=== PATIENT | female | born 1960 | race Caucasian/White ===

== ENCOUNTER 2016-04-28 11:46 | Emergency (ER) | payer OTHER ==
[~2016-04-28 11:46] MED LIST: ALBUTEROL0.09 MG/A2 IH; AMBIEN5 MG PO; AMOXICILLIN500 MG PO; ANAFRANIL50 M1 PO; ANAFRANIL50 MG PO; ASPIRIN81 M1 PO; ATIVAN0.5 MG PO; AUGMENTIN 875 M1 TAB PO; BUSPIRONE HCL15 MG PO; BUSPIRONE HCL5 MG PO; CALCIUM 500 +1 EAC1 PO; CIPRO250 MG PO; CIPROFLOXACIN500 MG PO; CLARITIN10 MG PO; CLOMIPRAMINE HC50 MG PO; CLONAZEPAM0.5 M2 PO; COMBIVENT1 ARO IH; DARVOCET N 1001 TAB PO; DAYPRO600 M1 PO; DIAZEPAM10 MG PO; DICLOFENAC POTA50 MG PO; DITROPAN XL10 MG PO; DYAZIDE 25 MG-31 CAP PO; Duoneb 3ML 3 MG/3 ML INH; FLEXERIL10 MG PO; FLUOXETINE HCL20 MG PO; FLUOXETINE HCL40 MG PO; FLUOXETINE HYDR20 M1 PO; FLUOXETINE40 MG PO; GABAPENTIN600 MG PO; HYDROCODONE BIT1 T11 PO; HYDROXYZINE HCL50 MG PO; KLONOPIN1 M1 PO; KLONOPIN1 MG PO; KLONOPIN2 M1 PO; LISINOPRIL AND1 TA2 PO; LISINOPRIL/HCTZ1 TA2 PO; LISINOPRIL10 MG PO; MEDROL DOSEPAK4 MG PO; MELATONIN5 M2 PO; MOTRIN IB200 MG PO; MOTRIN800 MG PO; NORCO 325 MG-51 TAB PO; NORFLEX100 MG PO; NORVASC5 MG PO; OSCAL/D,OYSTER250 MG PO; PEPCID20 MG PO; PIROXICAN10 MG PO; PRAVACHOL20 MG PO; PRAVACHOL40 MG PO; PREDNICOT20 MG PO; PREDNISONE20 M1 PO; PROAIR HFA8.5 GM IH; PROTONIX40 MG PO; QVAR 80MCG/INH7.3 G1 IH; REQUIP2 M2 PO; ROBAXIN750 MG PO; ROPINIROLE HYDRO1 MG PO; SEROQUEL XR300 MG PO; SEROQUEL XR400 MG PO; SEROQUEL300 MG PO; SEROQUEL50 MG PO; TIZANIDINE HCL4 M1 PO; TOPROL XL100 MG PO; TOPROL XL50 M1 PO; TOPROL XL50 MG PO; TORADOL10 MG PO; TRAMADOL HCL50 MG PO; TRAZODONE100 MG PO; ULTRAM50 MG PO; VALIUM10 MG PO; VALIUM5 MG PO; VENTOLIN H0.09 MG/AC INH; VIBRAMYCIN100 MG PO; VICODIN 5/500 505 MG PO; VICODIN1 TAB PO; VITAMIN D50000 IU PO; VITAMIN D50000 UNIT PO; VOLTAREN1% TP; ZITHROMAX Z PA250 MG PO; ZITHROMAX250 MG PO; Zestril,Prinivil5 MG PO; Zofran4 MG PO; vit d2 PO
[2016-04-28] MEDS ORDERED: CYCLOBENZAPRINE10 MG PO (13:35)
== END 2016-04-28 13:43 | disposition home or self-care (01) ==
LOC: ED 11:46
DX: T14.8 Other injury of unspecified body region (principal); M54.2 Cervicalgia; M54.5 Low back pain; I10 Essential (primary) hypertension; F17.200 Nicotine dependence, unspecified, uncomplicated; Z96.653 Presence of artificial knee joint, bilateral; Z98.890 Other specified postprocedural states; Z79.82 Long term (current) use of aspirin; Z79.899 Other long term (current) drug therapy; Z91.041 Radiographic dye allergy status; Z91.010 Allergy to peanuts; Z91.013 Allergy to seafood; W19.XXXA Unspecified fall, initial encounter; Y93.89 Activity, other specified; Y92.89 Other specified places as the place of occurrence of the external cause; Y99.9 Unspecified external cause status

== ENCOUNTER → 2016-09-04 | Outpatient (CLI) | payer OTHER ==
[~2016-09-04] MED LIST changes: +CYCLOBENZAPRINE10 MG PO
[2016-09-04 12:34] LABS: BILIRUBIN NEGATIVE (NEGATIVE); BLOOD TRACE-INTACT (NEGATIVE); CLARITY CLEAR (CLEAR); COLOR YELLOW (YELLOW); GLUCOSE NEGATIVE (NEGATIVE); KETONE NEGATIVE (NEGATIVE); LEUKO ESTERASE NEGATIVE (NEGATIVE); NITRITE NEGATIVE (NEGATIVE); PH 6.5 (5.0-9.0); PROTEIN NEGATIVE (NEGATIVE); SPECIFIC GRAVITY <= 1.005 (1.005-1.030); UROBILINOGEN 0.2 E.U./dl (0.2-1.0)
[2016-09-04 12:44] LABS: RBC 0-2 rbc/hpf (0-2)
== END | disposition home or self-care (01) ==
LOC: LAB 11:51
PROVIDERS: Urology
DX: R31.9 Hematuria, unspecified (principal)

== ENCOUNTER → 2016-09-12 | Outpatient (CLI) | payer OTHER | END | disposition home or self-care (01) | LOC: CT 10:52 | DX: R31.9 Hematuria, unspecified (principal) ==

== ENCOUNTER 2016-11-05 09:08 | Emergency (ER) | payer OTHER ==
[~2016-11-05] VITALS: Ht 152.4 cm; Wt 81.6 kg
[2016-11-05 09:17] VITALS: BP 153/97
[2016-11-05] MEDS ORDERED: MEDROL DOSEPAK4 MG PO (11:21)
== END 2016-11-05 11:36 | disposition home or self-care (01) ==
LOC: ED 09:08
DX: M77.9 Enthesopathy, unspecified (principal); M25.531 Pain in right wrist; J44.9 Chronic obstructive pulmonary disease, unspecified; I10 Essential (primary) hypertension; E78.5 Hyperlipidemia, unspecified; G43.909 Migraine, unspecified, not intractable, without status migrainosus; E66.01 Morbid (severe) obesity due to excess calories; G25.81 Restless legs syndrome; F17.200 Nicotine dependence, unspecified, uncomplicated; Z96.653 Presence of artificial knee joint, bilateral; Z98.890 Other specified postprocedural states; Z79.899 Other long term (current) drug therapy; Z79.82 Long term (current) use of aspirin; Z91.010 Allergy to peanuts; Z91.013 Allergy to seafood; Z88.6 Allergy status to analgesic agent; X50.0XXA Overexertion from strenuous movement or load, initial encounter; Y93.89 Activity, other specified; Y92.89 Other specified places as the place of occurrence of the external cause; Y99.9 Unspecified external cause status

== ENCOUNTER → 2017-03-20 | Outpatient (CLI) | payer MEDICARE ==
[2017-03-20 10:09] LABS: CREATININE 0.94 mg/dL (0.55-1.02)
== END | disposition home or self-care (01) ==
LOC: LAB 09:26 → CT 10:00
PROVIDERS: Radiology Diagnostic Radiology
DX: R31.9 Hematuria, unspecified (principal)

== ENCOUNTER → 2017-10-30 | Outpatient (CLI) | payer MEDICARE | END | disposition home or self-care (01) | LOC: US 12:15 | DX: N83.201 Unspecified ovarian cyst, right side (principal); Z78.0 Asymptomatic menopausal state ==

== ENCOUNTER → 2017-11-27 | Day surgery (SDC) | payer MEDICARE ==
[~2017-11-27] VITALS: Ht 157.4 cm; Wt 73.0 kg
--- NOTE | ~2017-11-27 | PROC NOTE ---
[place], [place] PROCEDURE NOTE NAME: YADIEL BARBOZA UNIT #: [id number] ROOM: DOCTOR: OJ MARTINEZ MD BIRTHDATE: [birth year] DOS: 11/27/2017 PREOPERATIVE DIAGNOSIS: Screening examination. POSTOPERATIVE DIAGNOSIS: Normal colon. PROCEDURE: Colonoscopy. ENDOSCOPIST: Oj Martinez MD CERTIFIED PHLEBOTOMIST: STEPHEN. ANESTHESIA: MAC. INDICATIONS: This is a 57-year-old lady who comes in for a screening examination. The procedure and its complications were explained to the patient in detail preoperatively. Complications that were discussed included, but were not limited to bleeding, missed lesions and colon perforation. She agreed to proceed. DESCRIPTION OF PROCEDURE: After identifying the patient, the patient was brought to the operating suite and laid in the left lateral position. After IV sedation was administered, a time-out procedure was called. A digital rectal exam was performed, which was within normal limits. An adult colonoscope was now introduced into the anal canal and advanced sequentially into the rectum, sigmoid colon, descending colon, transverse colon and ascending colon up to the cecum. The colon was found to be tortuous and was negotiated without any difficulty, right up to the cecum. Upon reaching the cecum, the scope was withdrawn. Total withdrawal time was approximately 7 minutes. There were no obvious lesions that could be seen in the entirety of the colon except for the tortuosity of the colon. After the scope was withdrawn, the patient was then brought back to the recovery room in stable fashion. There were no complications. Dr. Oj Martinez, the attending endoscopist, was present throughout the operating case. Based on these findings, the patient is recommended to have another colonoscopy in 10 years or sooner if new symptoms. These findings were discussed with the patient's next of kin in the recovery room. [place], [place] PROCEDURE NOTE NAME: YADIEL BARBOZA UNIT #: [id number] ROOM: DOCTOR: OJ MARTINEZ MD BIRTHDATE: [birth year] Oj Martinez MD CM:PROCNOTE:PROCEDURE NOTE [id number] OJ MARTINEZ MD
[2017-11-27 06:30] VITALS: BP 142/86
[2017-11-27 08:00] VITALS: BP 105/56
[2017-11-27 08:15] VITALS: BP 110/64
[2017-11-27 08:30] VITALS: BP 116/68
== END | disposition home or self-care (01) ==
LOC: SDC 11-24 12:30
DX: Z12.11 Encounter for screening for malignant neoplasm of colon (principal); K63.89 Other specified diseases of intestine; I10 Essential (primary) hypertension; J44.9 Chronic obstructive pulmonary disease, unspecified; M19.90 Unspecified osteoarthritis, unspecified site; G43.909 Migraine, unspecified, not intractable, without status migrainosus; F32.9 Major depressive disorder, single episode, unspecified; F41.9 Anxiety disorder, unspecified; F17.210 Nicotine dependence, cigarettes, uncomplicated; Z85.828 Personal history of other malignant neoplasm of skin; Z88.8 Allergy status to other drugs, medicaments and biological substances; Z79.899 Other long term (current) drug therapy; Z79.82 Long term (current) use of aspirin; Z82.49 Family history of ischemic heart disease and other diseases of the circulatory system; Z96.653 Presence of artificial knee joint, bilateral
CPT/HCPCS: 00812; G0121

== ENCOUNTER 2018-09-11 12:33 | Emergency (ER) | payer MEDICARE ==
[~2018-09-11] VITALS: Ht 157.4 cm; Wt 82.1 kg
[2018-09-11 13:36] LABS: BASO % 0.4 % (0.0-1.0); EOS # 0.1 10*3/uL (0.0-0.4); EOS % 1.5 % (1.0-4.0); HEMATOCRIT 40.6 % (37.0-47.0); HEMOGLOBIN 13.7 g/dl (12.0-16.0); LYMPH # 2.2 10*3/uL (1.3-4.4); LYMPH % 30.6 % (27.0-41.0); MEAN CELL VOLUME 100.5 fl (81.0-99.0); MEAN CORPUSCULAR HGB 33.9 pg (27.0-31.0); MEAN CORPUSCULAR HGB CONC 33.7 g/dl (33.0-37.0); MEAN PLATELET VOLUME 10.9 fl (9.6-12.3); MONO # 0.4 10*3/uL (0.1-1.0); NEUT # 4.4 10*3/uL (2.3-7.9); NEUT % 61.2 % (47.0-73.0); PLATELET COUNT AUTOMATED 142 10*3/uL (130-400); RED BLOOD COUNT 4.04 10*6/uL (4.10-5.10); WHITE BLOOD COUNT 7.2 10*3/uL (4.8-10.8)
[2018-09-11 13:47] LABS: ACT PARTIAL THROMBO TIME 26.8 SECONDS (20.0-32.1)
[2018-09-11 13:54] LABS: ALBUMIN 3.8 gm/dl (3.1-4.5); ALKALINE PHOSPHATASE 98 U/L (45-117); BUN 20 mg/dl (7-24); CHLORIDE 107 mmol/L (98-107); LIPASE 125 U/L (73-393); POTASSIUM 4.3 mmol/L (3.5-5.1); SGOT/AST 17 IU/L (3-35); SGPT/ALT 22 U/L (12-78); SODIUM 141 mmol/L (136-145); TOTAL PROTEIN 7.6 gm/dL (6.4-8.2)
[2018-09-11 15:19] LABS: BILIRUBIN NEGATIVE (NEGATIVE); BLOOD NEGATIVE (NEGATIVE); CLARITY CLEAR (CLEAR); COLOR YELLOW (YELLOW); GLUCOSE NEGATIVE (NEGATIVE); KETONE NEGATIVE (NEGATIVE); LEUKO ESTERASE NEGATIVE (NEGATIVE); NITRITE NEGATIVE (NEGATIVE); PH 6.5 (5.0-9.0); SPECIFIC GRAVITY <= 1.005 (1.005-1.030); UROBILINOGEN 0.2 E.U./dl (0.2-1.0)
[2018-09-11 15:28] LABS: URINE AMPHETAMINES < 1000 (1000ng/ml); URINE BARBITURATES < 200 (200ng/ml); URINE BENZODIAZEPINES > 200 (200ng/ml); URINE CANNABINOIDS (THC) < 50 (50ng/ml); URINE COCAINE < 300 (300ng/ml); URINE METHADONE < 300 (300ng/ml); URINE OPIATES < 300 (300ng/ml)
[2018-09-11 15:29] LABS: URINE PHENCYCLIDINE < 25 (25ng/ml)
[2018-09-11 15:34] LABS: BACTERIA 1+
[2018-09-11 16:35] VITALS: BP 125/80
== END 2018-09-11 19:59 | disposition home or self-care (01) ==
LOC: ED 12:33
PROVIDERS: Physician Assistant
DX: S30.1XXA Contusion of abdominal wall, initial encounter (principal); R07.81 Pleurodynia; R11.0 Nausea; F17.200 Nicotine dependence, unspecified, uncomplicated; Z88.6 Allergy status to analgesic agent; Z91.013 Allergy to seafood; Z91.010 Allergy to peanuts; Z91.041 Radiographic dye allergy status; Z79.899 Other long term (current) drug therapy; Z79.82 Long term (current) use of aspirin; X50.0XXA Overexertion from strenuous movement or load, initial encounter; W22.8XXA Striking against or struck by other objects, initial encounter; Y93.89 Activity, other specified; Y92.098 Other place in other non-institutional residence as the place of occurrence of the external cause; Y99.8 Other external cause status

== ENCOUNTER → 2018-10-27 | Outpatient (CLI) | payer MEDICARE | END | disposition home or self-care (01) | LOC: CARD 01:21 | DX: I10 Essential (primary) hypertension (principal); I77.810 Thoracic aortic ectasia; Z79.899 Other long term (current) drug therapy ==

== ENCOUNTER → 2018-12-04 | Day surgery (SDC) | payer MEDICARE ==
[~2018-12-04] VITALS: Ht 157.4 cm; Wt 80.7 kg
[~2018-12-04] MED LIST changes: +KEPPRA250 MG PO; +QUETIAPINE FUM200 M3 PO
--- NOTE | ~2018-12-04 | O ---
[place], [place] OPERATIVE NOTE NAME: YADIEL BARBOZA UNIT #: [id number] ROOM: DOCTOR: THADDEUS WOODY MD BIRTHDATE: [birth year] DOS: 12/04/2018 PROCEDURE: Esophagogastroduodenoscopy and biopsy. INDICATIONS: Dysphagia. INFORMED CONSENT: An informed consent was obtained from the patient after indication of procedure, the alternatives, and potential complications were explained to her. PROCEDURE MEDICATION: Sedation was administered by Anesthesiology Department. SCOPE USED: Olympus diagnostic adult upper endoscope GIF-180, depth of insertion was to the descending duodenum. FINDINGS: After adequate sedation, the patient was placed in a left lateral decubitus position, scope was introduced under direct visualization through the upper esophageal sphincter into the esophagus. Esophageal mucosa appeared normal with no strictures or erosive esophagitis. Random biopsies were obtained to rule out eosinophilic esophagitis. GE junction was identified at 40 cm from incisors. The stomach was then intubated. Gastric mucosa inspected. Severe gastritis was seen with no discrete ulcers or active bleeding. A CLOtest was performed from the gastric antrum and body. Retroflexed views in the fundus showed no hiatal hernia. The pylorus was intubated easily. The duodenal bulb and descending duodenum were within normal range. Scope was then withdrawn after the stomach was decompressed. The patient tolerated the procedure well. IMPRESSION: 1. Severe gastritis, CLOtest performed. 2. Normal upper GI tract, otherwise, random esophageal biopsies were obtained. PLAN: We will review the histopathology and CLOtest results and treat the patient accordingly. Office followup will be scheduled in 2-3 weeks. [place], [place] OPERATIVE NOTE NAME: YADIEL BARBOZA UNIT #: [id number] ROOM: DOCTOR: THADDEUS WOODY MD BIRTHDATE: [birth year] THADDEUS WOODY MD CM:OPRECORD:OPERATIVE NOTE [id number] THADDEUS WOODY MD 12/07/18 1420 interface
--- NOTE | ~2018-12-04 | CON ---
[place], [place] REPORT OF CONSULTATION NAME: YADIEL BARBOZA UNIT #: [id number] ROOM: DOCTOR: THADDEUS WOODY MD BIRTHDATE: [birth year] DOS: 12/04/2018 PROCEDURE: Esophagogastroduodenoscopy and biopsy. INDICATIONS: Dysphagia. INFORMED CONSENT: An informed consent was obtained from the patient after indication of procedure, the alternatives, and potential complications were explained to her. PROCEDURE MEDICATION: Sedation was administered by Anesthesiology Department. SCOPE USED: Olympus diagnostic adult upper endoscope GIF-180, depth of insertion was to the descending duodenum. FINDINGS: After adequate sedation, the patient was placed in a left lateral decubitus position, scope was introduced under direct visualization through the upper esophageal sphincter into the esophagus. Esophageal mucosa appeared normal with no strictures or erosive esophagitis. Random biopsies were obtained to rule out eosinophilic esophagitis. GE junction was identified at 40 cm from incisors. The stomach was then intubated. Gastric mucosa inspected. Severe gastritis was seen with no discrete ulcers or active bleeding. A CLOtest was performed from the gastric antrum and body. Retroflexed views in the fundus showed no hiatal hernia. The pylorus was intubated easily. The duodenal bulb and descending duodenum were within normal range. Scope was then withdrawn after the stomach was decompressed. The patient tolerated the procedure well. IMPRESSION: 1. Severe gastritis, CLOtest performed. 2. Normal upper GI tract, otherwise, random esophageal biopsies were obtained. PLAN: We will review the histopathology and CLOtest results and treat the patient accordingly. Office followup will be scheduled in 2-3 weeks. TAHDDEUS WOODY MD CM:CONSTR:REPORT OF CONSULTATION 0849 12/07/18 1430 OSMANI [email or web address]
[2018-12-04 08:06] VITALS: BP 145/88
[2018-12-04 08:49] VITALS: BP 116/75
[2018-12-04 09:04] VITALS: BP 123/87
[2018-12-04 09:20] VITALS: BP 142/82
== END | disposition home or self-care (01) ==
LOC: SDC 12-01 08:45
DX: R13.19 Other dysphagia (principal); K29.70 Gastritis, unspecified, without bleeding; K21.0 Gastro-esophageal reflux disease with esophagitis; I10 Essential (primary) hypertension; J44.9 Chronic obstructive pulmonary disease, unspecified; K21.9 Gastro-esophageal reflux disease without esophagitis; M19.90 Unspecified osteoarthritis, unspecified site; F32.9 Major depressive disorder, single episode, unspecified; F41.9 Anxiety disorder, unspecified; F17.210 Nicotine dependence, cigarettes, uncomplicated; Z91.041 Radiographic dye allergy status; Z98.890 Other specified postprocedural states; Z79.899 Other long term (current) drug therapy; Z88.8 Allergy status to other drugs, medicaments and biological substances; Z96.653 Presence of artificial knee joint, bilateral

== ENCOUNTER 2019-04-19 10:57 | Emergency (ER) | payer MEDICARE ==
[2019-04-19 12:12] LABS: BASO % 0.6 % (0.0-1.0); EOS # 0.2 10*3/uL (0.0-0.4); EOS % 3.8 % (1.0-4.0); HEMATOCRIT 43.6 % (37.0-47.0); LYMPH % 38.5 % (27.0-41.0); MEAN CELL VOLUME 101.4 fl (81.0-99.0); MEAN CORPUSCULAR HGB 34.9 pg (27.0-31.0); MEAN CORPUSCULAR HGB CONC 34.4 g/dl (33.0-37.0); MEAN PLATELET VOLUME 10.6 fl (9.6-12.3); MONO # 0.2 10*3/uL (0.1-1.0); NEUT # 2.8 10*3/uL (2.3-7.9); NEUT % 52.9 % (47.0-73.0); PLATELET COUNT AUTOMATED 158 10*3/uL (130-400); RED CELL DISTRI WIDTH 12.6 % (0-14.5); WHITE BLOOD COUNT 5.2 10*3/uL (4.8-10.8)
[2019-04-19 12:29] LABS: ALBUMIN 3.9 gm/dl (3.1-4.5); ALKALINE PHOSPHATASE 75 U/L (45-117); BUN 11 mg/dl (7-24); CHLORIDE 108 mmol/L (98-107); POTASSIUM 3.7 mmol/L (3.5-5.1); SGOT/AST 51 IU/L (3-35); SGPT/ALT 63 U/L (12-78); SODIUM 137 mmol/L (136-145); TOTAL PROTEIN 7.8 gm/dL (6.4-8.2)
[2019-04-19 12:39] LABS: BILIRUBIN NEGATIVE (NEGATIVE); BLOOD TRACE-LYSED (NEGATIVE); CLARITY CLEAR (CLEAR); COLOR YELLOW (YELLOW); GLUCOSE NEGATIVE (NEGATIVE); KETONE NEGATIVE (NEGATIVE); LEUKO ESTERASE NEGATIVE (NEGATIVE); NITRITE NEGATIVE (NEGATIVE); PH 6.5 (5.0-9.0); SPECIFIC GRAVITY 1.025 (1.005-1.030); UROBILINOGEN 0.2 E.U./dl (0.2-1.0)
[2019-04-19] MEDS ORDERED: PREDNISONE50 MG PO (14:34)
[2019-04-19] MEDS ORDERED: ZITHROMAX250 MG PO (14:34)
== END 2019-04-19 14:49 | disposition home or self-care (01) ==
LOC: ED 10:57
PROVIDERS: Nurse Practitioner Family
DX: J20.9 Acute bronchitis, unspecified (principal); H57.89 Other specified disorders of eye and adnexa; J45.909 Unspecified asthma, uncomplicated; M19.90 Unspecified osteoarthritis, unspecified site; I10 Essential (primary) hypertension; G40.909 Epilepsy, unspecified, not intractable, without status epilepticus; K21.9 Gastro-esophageal reflux disease without esophagitis; F17.200 Nicotine dependence, unspecified, uncomplicated; Z88.8 Allergy status to other drugs, medicaments and biological substances; Z91.010 Allergy to peanuts; Z91.013 Allergy to seafood; Z91.041 Radiographic dye allergy status; Z79.899 Other long term (current) drug therapy

== ENCOUNTER → 2019-11-25 | Outpatient (CLI) | payer MEDICARE ==
[~2019-11-25] MED LIST changes: +FLOVENT HFA12 G1 PO; +GOOD NEIGHBOR P20 MG PO; +MELATONIN10 M2 PO; +NORVASC2.5 MG PO; -PRAVACHOL20 MG PO; +PREDNISONE50 MG PO
[2019-11-25 11:42] LABS: HEMATOCRIT 42.2 % (37.0-47.0); MEAN CELL VOLUME 103.9 fl (81.0-99.0); MEAN CORPUSCULAR HGB 34.7 pg (27.0-31.0); MEAN CORPUSCULAR HGB CONC 33.4 g/dl (33.0-37.0); MEAN PLATELET VOLUME 10.8 fl (9.6-12.3); RED BLOOD COUNT 4.06 10*6/uL (4.10-5.10); RED CELL DISTRI WIDTH 12.8 % (0-14.5); WHITE BLOOD COUNT 4.9 10*3/uL (4.8-10.8)
[2019-11-25 12:00] LABS: ALBUMIN 3.7 gm/dl (3.1-4.5); ALKALINE PHOSPHATASE 95 U/L (45-117); BUN 15 mg/dl (7-24); CHLORIDE 111 mmol/L (98-107); CHOLESTEROL 218 mg/dL (<200); CREATININE 0.81 mg/dL (0.55-1.02); HDL CHOLESTEROL 83 mg/dl (40-60); LDL CHOLESTEROL 104 mg/dL (9-159); POTASSIUM 4.8 mmol/L (3.5-5.1); SGOT/AST 28 IU/L (3-35); SGPT/ALT 38 U/L (12-78); SODIUM 142 mmol/L (136-145); TOTAL PROTEIN 7.6 gm/dL (6.4-8.2); TRIGLYCERIDES 157 mg/dl (<150); VLDL CHOLESTEROL 31 mg/dL (6-40)
--- NOTE | 2019-11-25 12:12 | NUR ---
INFORMED SIGNED CONSENT OBTAINED FOR LEXISCAN STRESS TEST WITH DR BUCHANAN. RESTING EKG NSR HR 76 BP 140/84. PULSE OX 97% LUNGS CLEAR. PT COMPLETED ONE MINUTE OF A LEXISCAN PROTOCOL WITH PT RECEIVING LEXISCAN 0.4MG IV OVER 10 SECONDS. NO ARRHYTMIAS OR ST CHANGES NOTED. PT C/O NAUSEA WITH INJECTION, IV ZOFRAN GIVEN. LAST RECOVERY HR OF 85 BP 126/74. PT IN STABLE CONDITION, AWAITING NUCLEAR IMAGES.
== END | disposition home or self-care (01) ==
LOC: CARD 00:38
PROVIDERS: ATTEND Physician Assistant
DX: I25.9 Chronic ischemic heart disease, unspecified (principal); R53.81 Other malaise; J44.9 Chronic obstructive pulmonary disease, unspecified; R07.9 Chest pain, unspecified; R06.02 Shortness of breath

== ENCOUNTER → 2019-12-02 | Outpatient (CLI) | payer MEDICARE | END | disposition home or self-care (01) | LOC: US 13:00 | PROVIDERS: ATTEND Physician Assistant | DX: J43.9 Emphysema, unspecified (principal); R07.9 Chest pain, unspecified; Z12.31 Encounter for screening mammogram for malignant neoplasm of breast; N64.59 Other signs and symptoms in breast ==

== ENCOUNTER 2019-12-16 10:54 | Emergency (ER) | payer MEDICARE ==
[~2019-12-16] VITALS: Ht 152.4 cm; Wt 77.1 kg
[2019-12-16 10:54] VITALS: BP 160/92
[2019-12-16 11:13] LABS: BASO % 0.6 % (0.0-1.0); EOS # 0.1 10*3/uL (0.0-0.4); EOS % 1.4 % (1.0-4.0); LYMPH # 2.4 10*3/uL (1.3-4.4); LYMPH % 37.7 % (27.0-41.0); MEAN CELL VOLUME 102.7 fl (81.0-99.0); MEAN CORPUSCULAR HGB 35.7 pg (27.0-31.0); MEAN CORPUSCULAR HGB CONC 34.8 g/dl (33.0-37.0); MEAN PLATELET VOLUME 10.3 fl (9.6-12.3); MONO # 0.4 10*3/uL (0.1-1.0); MONO % 6.1 % (3.0-9.0); NEUT # 3.4 10*3/uL (2.3-7.9); NEUT % 53.9 % (47.0-73.0); PLATELET COUNT AUTOMATED 176 10*3/uL (130-400); RED BLOOD COUNT 4.09 10*6/uL (4.10-5.10); RED CELL DISTRI WIDTH 12.3 % (0-14.5); WHITE BLOOD COUNT 6.3 10*3/uL (4.8-10.8)
[2019-12-16 11:24] LABS: ACT PARTIAL THROMBO TIME 28.1 SECONDS (20.0-32.1)
[2019-12-16 11:31] LABS: ALBUMIN 3.8 gm/dl (3.1-4.5); ALKALINE PHOSPHATASE 92 U/L (45-117); BUN 14 mg/dl (7-24); CHLORIDE 108 mmol/L (98-107); CREATININE 0.81 mg/dL (0.55-1.02); POTASSIUM 4.6 mmol/L (3.5-5.1); SGOT/AST 41 IU/L (3-35); SGPT/ALT 40 U/L (12-78); SODIUM 142 mmol/L (136-145); TOTAL PROTEIN 7.7 gm/dL (6.4-8.2)
[2019-12-16 11:34] LABS: TROPONIN I < 0.015 ng/ml (<0.045)
== END 2019-12-16 11:50 | disposition home or self-care (01) ==
LOC: ED 10:54
PROVIDERS: Emergency Medicine
DX: I10 Essential (primary) hypertension (principal); R07.9 Chest pain, unspecified; Z88.8 Allergy status to other drugs, medicaments and biological substances; Z91.041 Radiographic dye allergy status; Z79.899 Other long term (current) drug therapy

== ENCOUNTER 2020-10-13 11:55 | Emergency (ER) | payer MEDICARE ==
[~2020-10-13] VITALS: Ht 152.4 cm; Wt 74.4 kg
[2020-10-13 12:14] VITALS: BP 148/96
== END 2020-10-13 14:34 | disposition home or self-care (01) ==
LOC: ED 11:55
DX: D59.9 Acquired hemolytic anemia, unspecified (principal); R05 Cough; F32.9 Major depressive disorder, single episode, unspecified; F41.9 Anxiety disorder, unspecified; E78.5 Hyperlipidemia, unspecified; G43.909 Migraine, unspecified, not intractable, without status migrainosus; E66.01 Morbid (severe) obesity due to excess calories; I10 Essential (primary) hypertension; J44.9 Chronic obstructive pulmonary disease, unspecified; F17.200 Nicotine dependence, unspecified, uncomplicated; Z88.8 Allergy status to other drugs, medicaments and biological substances; Z91.013 Allergy to seafood; Z91.010 Allergy to peanuts; Z91.041 Radiographic dye allergy status; Z79.899 Other long term (current) drug therapy; Z68.45 Body mass index [BMI] 70 or greater, adult; Z96.653 Presence of artificial knee joint, bilateral; Z98.890 Other specified postprocedural states